=== PATIENT | female | born 1970 | race Hispanic/Latino ===

== ENCOUNTER → 2022-09-17 | Emergency (ER) | payer BC, OTHER ==
[~2022-09-17] VITALS: Ht 180.3 cm; Wt 125.6 kg
[~2022-09-17] MED LIST: IOHEXOL 350 MG/ML 100ML INFUS..BTL IV ONE; SODIUM CHLORIDE 3% FOR INHALATION 4 ML/AMP VIAL.NEB IH ONE
[2022-09-17 12:37] VITALS: BP 180/109
== END ==
LOC: EDH 12:36
DX: R06.02 Shortness of breath (principal); Z53.21 Procedure and treatment not carried out due to patient leaving prior to being seen by health care provider
CPT/HCPCS: 93005; Q9967; 99281